=== PATIENT | male | born 1965 | race Caucasian/White ===

== ENCOUNTER 2021-06-11 12:29 | Emergency (ER) | payer MEDICAID, OTHER ==
[~2021-06-11] VITALS: Ht 172.7 cm; Wt 77.3 kg
[2021-06-11 12:47] VITALS: BP 146/98
[2021-06-11] MEDS ORDERED: ALBU8HFA PO (14:55)
[2021-06-11] MEDS ORDERED: BENZ-38 PO (14:55)
== END 2021-06-11 15:36 | disposition home or self-care (01) ==
LOC: ER 12:30
DX: J06.9 Acute upper respiratory infection, unspecified (principal); Z20.822 Contact with and (suspected) exposure to COVID-19; Z79.899 Other long term (current) drug therapy
CPT/HCPCS: 71045; 87635; 99284; C9803

== ENCOUNTER 2021-08-30 09:57 | Emergency (ER) | payer MEDICAID ==
[~2021-08-30] VITALS: Ht 172.7 cm; Wt 72.0 kg
[2021-08-30 10:17] VITALS: BP 120/73
--- NOTE | 2021-08-30 10:40 | NUR ---
1038 I have reviewed and agree with all interventions, assessments performed and documented by REGINALD TRAVIS.
== END 2021-08-30 13:53 | disposition home or self-care (01) ==
LOC: ER 09:58
DX: J02.9 Acute pharyngitis, unspecified (principal); Z20.822 Contact with and (suspected) exposure to COVID-19; R05.9 Cough, unspecified
CPT/HCPCS: 87635; 99283; C9803

== ENCOUNTER 2021-09-02 08:20 | Emergency (ER) | payer MEDICAID ==
[~2021-09-02] VITALS: Ht 172.7 cm; Wt 72.7 kg
[2021-09-02 08:29] VITALS: BP 127/71
[2021-09-02] MEDS ORDERED: PRED20TA PO (09:32)
[2021-09-02] MEDS ORDERED: AMOX-117 PO (09:32)
[2021-09-02] MEDS ORDERED: ALBU6.7H9 INH (09:32)
== END 2021-09-02 10:07 | disposition home or self-care (01) ==
LOC: ER 08:20
DX: J02.9 Acute pharyngitis, unspecified (principal); R05.9 Cough, unspecified; F17.200 Nicotine dependence, unspecified, uncomplicated; Z79.2 Long term (current) use of antibiotics; Z79.899 Other long term (current) drug therapy
CPT/HCPCS: 71045; 99283

== ENCOUNTER 2021-11-14 06:37 | Emergency (ER) | payer MEDICAID ==
[~2021-11-14] VITALS: Ht 172.7 cm; Wt 70.5 kg
[~2021-11-14 06:37] MED LIST: ALBU6.7H9 INH
[2021-11-14 06:40] VITALS: BP 147/86
[2021-11-14] MEDS ORDERED: LIDOcaine 1% 30ml preserv. free vial SQ STA (07:07)
[2021-11-14] MEDS ORDERED: MELO-102 PO (07:30)
== END 2021-11-14 08:10 | disposition home or self-care (01) ==
LOC: ER 06:38
DX: S29.011A Strain of muscle and tendon of front wall of thorax, initial encounter (principal); X50.0XXA Overexertion from strenuous movement or load, initial encounter; Y93.89 Activity, other specified; Y92.89 Other specified places as the place of occurrence of the external cause; Y99.8 Other external cause status
CPT/HCPCS: 20553; 99284

== ENCOUNTER 2022-03-24 11:36 | Emergency (ER) | payer MEDICAID ==
[~2022-03-24] VITALS: Ht 172.7 cm; Wt 86.4 kg
[~2022-03-24 11:36] MED LIST changes: +ALBU6.7H14 INH; -ALBU6.7H9 INH; +MELO-102 PO
[2022-03-24 11:53] VITALS: BP 126/81
[2022-03-24 12:35] LABS: BASOPHILS # (AUTO) 0.1 X10'3 (0-0.2); BASOPHILS % (AUTO) 0.6 % (0-1); EOSINOPHILS # (AUTO) 0.2 X10'3 (0-0.9); EOSINOPHILS % (AUTO) 1.6 % (0-6); HEMATOCRIT 42.2 % (42.0-52.0); HEMOGLOBIN 14.5 g/dl (14.0-17.9); LYMPHOCYTES # (AUTO) 3.2 X10'3 (1.1-4.8); LYMPHOCYTES % (AUTO) 31.5 % (21-51); MEAN CORPUSCULAR HGB CONC 34.2 g/dL (33.0-36.5); MEAN CORPUSCULAR VOLUME 93.6 FL (78-98); MEAN PLATELET VOLUME 7.9 FL (7.4-10.4); MONOCYTES # (AUTO) 0.9 X10'3 (0-0.9); MONOCYTES % (AUTO) 8.8 % (2-12); NEUTROPHILS # (AUTO) 5.9 X10'3 (1.8-7.7); NEUTROPHILS % (AUTO) 57.5 % (42-75); PLATELET COUNT 298 X10'3 (140-440); RED BLOOD COUNT 4.51 X10'6 (4.70-6.10); RED CELL DISTRIBUTION WIDTH 13.1 % (11.5-14.5); WHITE BLOOD COUNT 10.3 X10'3 (4.5-11.0)
[2022-03-24 12:40] LABS: CLARITY,URINE SLIGHTLY CLOUDY (Clear); COLOR,URINE YELLOW (Yellow); GLUCOSE, URINE NEGATIVE (Neg); KETONES,URINE NEGATIVE (Neg); LEUKOCYTE ESTERASE ,URINE TRACE (Neg); NITRITES, URINE NEGATIVE (Neg); OCCULT BLOOD,URINE TRACE-INTACT (Neg); PH,URINE 6.5 (4.8-8.0); PROTEIN,URINE NEGATIVE (Neg); UROBILINOGEN,URINE 0.2 E.U/dL (0.2-1.0)
[2022-03-24 12:42] LABS: UA COLLECTION TYPE CLN CATCH MIDSTREAM
[2022-03-24 12:46] LABS: MUCUS STRANDS FEW /LPF (Neg); SQUAMOUS EPITHELIAL CELL,UR FEW /LPF (FEW)
[2022-03-24 12:47] LABS: ALANINE AMINOTRANSFERASE 21 U/L (12-78); ALBUMIN 3.7 G/DL (3.4-5.0); ALBUMIN/GLOBULIN RATIO 0.9 (1.1-1.5); ALKALINE PHOSPHATASE 83 IU/L (46-116); ANION GAP 7 (8-16); ASPARTATE AMINO TRANSFERASE 13 U/L (10-37); BILIRUBIN,TOTAL 0.3 MG/DL (0.1-1.0); BLOOD UREA NITROGEN 15 MG/DL (7-18); CALCIUM 8.9 MG/DL (8.5-10.1); CHLORIDE 101 MMOL/L (99-107); CREATININE 0.94 MG/DL (0.60-1.10); GLUCOSE 93 MG/DL (70-104); LIPASE 81 U/L (73-393); POTASSIUM 4.2 MMOL/L (3.5-5.1); SODIUM 138 MMOL/L (135-145); TOTAL CARBON DIOXIDE 29.8 MMOL/L (24-32); TOTAL PROTEIN 7.8 G/DL (6.4-8.2); eGFR 82 ML/MIN
[2022-03-24 12:49] LABS: BACTERIA,URINE FEW /HPF (Neg); RBC,URINE 0-2 /HPF (0-2)
[2022-03-24] MEDS ORDERED: CIPR-259 PO (14:28)
[2022-03-24] MEDS ORDERED: FAMO20TA44 PO (14:28)
[2022-03-24] MEDS ORDERED: cephalexin 250mg capsule PO ONE (14:36)
[2022-03-24] MEDS ORDERED: famotidine 20mg tablet PO ONE (14:37)
== END 2022-03-24 14:46 | disposition home or self-care (01) ==
LOC: ER 11:37
DX: N39.0 Urinary tract infection, site not specified (principal)
CPT/HCPCS: 36415; 80053; 81001; 83690; 85025; 87077; 87088; 87186; 99283

== ENCOUNTER 2022-03-27 15:39 | Emergency (ER) | payer MEDICAID ==
[~2022-03-27] VITALS: Ht 172.7 cm; Wt 178.0 kg
[~2022-03-27 15:39] MED LIST changes: +CIPR-259 PO; +FAMO20TA44 PO
[2022-03-27 16:43] VITALS: BP 146/98
[2022-03-28] MEDS ORDERED: MAG355OR18 PO (12:17)
== END 2022-03-27 21:59 | disposition left against medical advice (07) ==
LOC: ER 15:40
DX: R11.0 Nausea (principal); Z53.21 Procedure and treatment not carried out due to patient leaving prior to being seen by health care provider

== ENCOUNTER 2022-03-28 08:33 | Emergency (ER) | payer MEDICAID ==
[~2022-03-28] VITALS: Ht 172.7 cm; Wt 81.8 kg
[2022-03-28 09:14] LABS: BASOPHILS # (AUTO) 0.1 X10'3 (0-0.2); BASOPHILS % (AUTO) 1.1 % (0-1); EOSINOPHILS # (AUTO) 0.1 X10'3 (0-0.9); HEMATOCRIT 43.6 % (42.0-52.0); HEMOGLOBIN 15.1 g/dl (14.0-17.9); LYMPHOCYTES # (AUTO) 2.4 X10'3 (1.1-4.8); MEAN CORPUSCULAR HEMOGLOBIN 32.1 PG (27.0-31.0); MEAN CORPUSCULAR HGB CONC 34.6 g/dL (33.0-36.5); MEAN CORPUSCULAR VOLUME 92.7 FL (78-98); MEAN PLATELET VOLUME 7.5 FL (7.4-10.4); MONOCYTES # (AUTO) 0.8 X10'3 (0-0.9); NEUTROPHILS # (AUTO) 6.2 X10'3 (1.8-7.7); NEUTROPHILS % (AUTO) 64.9 % (42-75); PLATELET COUNT 292 X10'3 (140-440); RED CELL DISTRIBUTION WIDTH 12.9 % (11.5-14.5); WHITE BLOOD COUNT 9.6 X10'3 (4.5-11.0)
[2022-03-28 09:41] LABS: ALBUMIN 4.1 G/DL (3.4-5.0); ASPARTATE AMINO TRANSFERASE 19 U/L (10-37)
[2022-03-28 09:43] LABS: ALANINE AMINOTRANSFERASE 21 U/L (12-78); ALKALINE PHOSPHATASE 81 IU/L (46-116); ANION GAP 6 (8-16); BILIRUBIN,TOTAL 0.9 MG/DL (0.1-1.0); BLOOD UREA NITROGEN 12 MG/DL (7-18); BUN/CREATININE RATIO 13.3 (5.4-32.0); CHLORIDE 101 MMOL/L (99-107); GLUCOSE 92 MG/DL (70-104); LIPASE 67 U/L (73-393); POTASSIUM 4.1 MMOL/L (3.5-5.1); SODIUM 136 MMOL/L (135-145); TOTAL CARBON DIOXIDE 29.3 MMOL/L (24-32); TOTAL PROTEIN 8.1 G/DL (6.4-8.2); eGFR 86 ML/MIN
[2022-03-28 10:45] LABS: CLARITY,URINE CLEAR (Clear); GLUCOSE, URINE NEGATIVE (Neg); KETONES,URINE 15 mg/dl (Neg); LEUKOCYTE ESTERASE ,URINE NEGATIVE (Neg); NITRITES, URINE NEGATIVE (Neg); OCCULT BLOOD,URINE TRACE-LYSED (Neg); PROTEIN,URINE NEGATIVE (Neg); UROBILINOGEN,URINE 0.2 E.U/dL (0.2-1.0)
[2022-03-28 10:48] LABS: COLOR,URINE STRAW (Yellow); UA COLLECTION TYPE VOIDED
[2022-03-28 10:56] LABS: BACTERIA,URINE FEW /HPF (Neg); MUCUS STRANDS FEW /LPF (Neg); RBC,URINE 0-2 /HPF (0-2); SQUAMOUS EPITHELIAL CELL,UR FEW /LPF (FEW); WBC,URINE 0-4 /HPF (0-4)
[2022-03-28 11:59] VITALS: BP 106/76
[2022-03-28] MEDS ORDERED: MAG355OR18 PO (12:17)
== END 2022-03-28 12:36 | disposition home or self-care (01) ==
LOC: ER 08:33
DX: R10.9 Unspecified abdominal pain (principal); Z79.899 Other long term (current) drug therapy; Z79.2 Long term (current) use of antibiotics
CPT/HCPCS: 36415; 80053; 81001; 83690; 85025; 99283

== ENCOUNTER 2022-03-30 11:48 | Emergency (ER) | payer MEDICAID ==
[~2022-03-30] VITALS: Ht 172.7 cm; Wt 79.5 kg
[~2022-03-30 11:48] MED LIST changes: +MAG355OR18 PO
[2022-03-30 12:45] VITALS: BP 134/77
== END 2022-03-30 15:43 | disposition home or self-care (01) ==
LOC: ER 11:49
DX: R10.9 Unspecified abdominal pain (principal); R11.0 Nausea; K21.9 Gastro-esophageal reflux disease without esophagitis; Z79.899 Other long term (current) drug therapy
CPT/HCPCS: 99281

== ENCOUNTER 2023-04-08 10:37 | Emergency (ER) | payer MEDICAID ==
[~2023-04-08] VITALS: Ht 172.7 cm; Wt 80.0 kg
[~2023-04-08 10:37] MED LIST changes: +AZIT-164 PO; -CIPR-259 PO; -MAG355OR18 PO; +OMEP40CA21 PO
[2023-04-08 10:39] VITALS: BP 130/88; PULSE 76; RESP 16; TEMP 97.1; O2SAT 99
--- NOTE | 2023-04-08 11:50 | NUR ---
PT VAGUE ON MEDICAL HISTORY
== END 2023-04-08 14:40 | disposition left against medical advice (07) ==
LOC: ER 10:37
DX: R09.81 Nasal congestion (principal); Z53.21 Procedure and treatment not carried out due to patient leaving prior to being seen by health care provider
CPT/HCPCS: 99281

== ENCOUNTER 2023-06-23 09:36 | Emergency (ER) | payer MEDICAID ==
[~2023-06-23] VITALS: Ht 172.7 cm; Wt 84.5 kg
[~2023-06-23 09:36] MED LIST changes: -AZIT-164 PO; -OMEP40CA21 PO
[2023-06-23 09:55] VITALS: BP 149/93; PULSE 79; RESP 17; TEMP 97.9; O2SAT 98
[2023-06-23] MEDS ORDERED: AZIT-21 PO ×3 (10:56→11:07)
[2023-06-23] MEDS ORDERED: ROBDML PO (10:56)
[2023-06-23] MEDS ORDERED: BENZ-38 PO ×3 (10:56→11:07)
== END 2023-06-23 11:10 | disposition home or self-care (01) ==
LOC: ER 09:36
DX: R05.9 Cough, unspecified (principal); R09.81 Nasal congestion; K21.9 Gastro-esophageal reflux disease without esophagitis; Z79.899 Other long term (current) drug therapy
CPT/HCPCS: 99283

== ENCOUNTER 2023-11-25 14:07 | Emergency (ER) | payer MEDICAID ==
[~2023-11-25] VITALS: Ht 170.2 cm; Wt 88.0 kg
[~2023-11-25 14:07] MED LIST changes: +AZIT-21 PO; +BENZ-38 PO
[2023-11-25 14:13] VITALS: TEMP 97.2; O2SAT 95
[2023-11-25 14:49] VITALS: BP 107/82; PULSE 89; RESP 16
== END 2023-11-25 15:40 | disposition home or self-care (01) ==
LOC: ER 14:08
DX: R05.9 Cough, unspecified (principal); K21.9 Gastro-esophageal reflux disease without esophagitis
CPT/HCPCS: 71045; 99283

== ENCOUNTER 2023-12-31 14:29 | Emergency (ER) | payer MEDICAID ==
[~2023-12-31] VITALS: Ht 170.2 cm; Wt 88.6 kg
[2023-12-31 15:10] VITALS: TEMP 97.9
[2023-12-31] MEDS ORDERED: DICY20TA17 PO (16:05)
[2023-12-31] MEDS ORDERED: METH-798 PO (16:05)
[2023-12-31 16:08] VITALS: BP 129/112; PULSE 83; RESP 16; O2SAT 100
== END 2023-12-31 16:10 | disposition home or self-care (01) ==
LOC: ER 14:30
DX: R10.84 Generalized abdominal pain (principal); K21.9 Gastro-esophageal reflux disease without esophagitis; Z79.899 Other long term (current) drug therapy; Z79.2 Long term (current) use of antibiotics
CPT/HCPCS: 99283

== ENCOUNTER 2024-03-17 13:30 | Emergency (ER) | payer MEDICAID ==
[~2024-03-17] VITALS: Ht 167.6 cm; Wt 90.0 kg
[~2024-03-17 13:30] MED LIST changes: +DICY20TA17 PO; +METH-798 PO
[2024-03-17] MEDS ORDERED: MUPI22OI30 TOP (15:38)
[2024-03-17 15:43] VITALS: BP 126/76; PULSE 71; RESP 16; TEMP 98; O2SAT 97
== END 2024-03-17 15:45 | disposition home or self-care (01) ==
LOC: ER 13:30
DX: S60.460A Insect bite (nonvenomous) of right index finger, initial encounter (principal); K21.9 Gastro-esophageal reflux disease without esophagitis; Z79.899 Other long term (current) drug therapy; Z79.2 Long term (current) use of antibiotics; W57.XXXA Bitten or stung by nonvenomous insect and other nonvenomous arthropods, initial encounter; Y93.89 Activity, other specified; Y92.89 Other specified places as the place of occurrence of the external cause; Y99.8 Other external cause status
CPT/HCPCS: 99283

== ENCOUNTER 2024-08-07 16:48 | Emergency (ER) | payer MEDICAID ==
[~2024-08-07] VITALS: Ht 170.2 cm; Wt 88.1 kg
[2024-08-07 16:53] VITALS: BP 164/89; PULSE 115; RESP 16; TEMP 98.2; O2SAT 98
[2024-08-07 17:35] LABS: STREP A SCREEN NEGATIVE (Neg)
== END 2024-08-07 18:02 | disposition home or self-care (01) ==
LOC: ER 16:49
DX: J39.2 Other diseases of pharynx (principal); J02.9 Acute pharyngitis, unspecified; K21.9 Gastro-esophageal reflux disease without esophagitis; Z79.899 Other long term (current) drug therapy
CPT/HCPCS: 87081; 87880; 99284

== ENCOUNTER 2024-12-31 11:03 | Emergency (ER) | payer MEDICAID ==
[~2024-12-31] VITALS: Ht 170.2 cm; Wt 68.2 kg
[2024-12-31 11:05] VITALS: BP 129/74; PULSE 96; RESP 16; TEMP 98.5; O2SAT 99
[2024-12-31] MEDS ORDERED: CLIN60LO TOP (11:25)
[2024-12-31] MEDS ORDERED: SULF1TAB49 PO (11:25)
--- NOTE | 2024-12-31 11:26 | Physician Documentation ---
History of Present Illness ~ Chief Complaint: Arm Pain Stated Complaint: ABSCESS Time Seen by MD: 11:12 Primary Medical Doctor: EDMOND RUTLEDGE HPI 59 year old Male with chronic abscess formations under his under arms. Has noticed for the past couple of days red abscesses to the left axillary region. No fevers no drainage from areas. Tetanus within 5 years: No Medication Reconciliation Allergies: Coded Allergies: No Known Allergies (Unverified , 12/31/24) Scheduled Albuterol Sulfate (Proventil Hfa), 2 PUFFS INH Q6H Azithromycin (Azithromycin), 1 TAB PO UD Benzonatate* (Benzonatate*), 1 CAP PO Q8H Clindamycin Phosphate (Cleocin T), 1 APPLIC TOP DAILY Dicyclomine HCl (Dicyclomine HCl), 1 TAB PO Q6H Famotidine (Pepcid AC), 1 TAB PO DAILY Meloxicam (Meloxicam), 1 TAB PO DAILY Methocarbamol (Methocarbamol), 1 TAB PO Q8H Sulfamethoxazole/Trimethoprim (Bactrim Ds Tablet), 1 TAB PO Q12H Past Medical History Past Medical History: *GI/HEPATOBILIARY*, GERD Past Surgical History: no surgical history Alcohol Use: None Drug Use: none Lives In: Home Review of Systems All Other Systems at this time: Reviewed and Negative Integumentary: Reports: see HPI Physical Exam Vital Signs: RN Vital Signs have been reviewed: Yes, Temperature: 98.5, Source: Temporal, Heart Rate: 96, Respiratory Rate: 16, BP: 129/74, Pulse Oximetry: 99, Weight: 68.180 Oxygen Flow Rate: 0 General Appearance: alert, WD/WN, no apparent distress Respiratory: lungs clear, normal breath sounds, no respiratory distress Chest: no accessory muscle use, chest non-tender Cardiovascular: normal peripheral pulses, regular rate, rhythm, no edema Skin The small indurated abscesses to the right axillary region no drainage ten derness Progress Results/Orders Results/Orders Vital Signs 12/31/24 11:05 Temp 98.5 Pulse 96 Resp 16 B/P (MAP) 129/74 Pulse Ox 99 O2 Flow Rate 0 Medical Decision Making Findings HS has a chronic abscess forming condition. An antibiotic cream and pill prescribed. Patient was instructed on abscess care and management including warm compress. Departure Time of Disposition: 11:21 Disposition: 01 HOME / SELF CARE / HOMELESS Impression: Primary Impression: Hidradenitis suppurativa of left axilla Condition: Stable Discharge Instructions: Abscess, Care After Additional Instructions: This appears to be Hidradenitis suppurativa. Antibiotics have been prescribed them follow up with primary care for further treatment and evaluation Referrals: NO PRIMARY CARE PROVIDER (PCP) Prescriptions Sulfamethoxazole/Trimethoprim (Bactrim Ds Tablet) 800 Mg-160 Mg Tablet 1 TAB PO Q12H for 10 Days, #20 TAB Prov: DENISHA PADILLA NP 12/31/24 Clindamycin Phosphate (Cleocin T) 1 % Lotion 1 APPLIC TOP DAILY for 30 Days, #60 ML 0 Refills apply to affected area(s) Prov: DENISHA PADILLA NP 12/31/24 Education Educated: Patient Educated regarding: diagnosis, treatment Signature Scribe Signature: No scribe Attestation: The note accurately reflects work and decisions made by me.Denisha MILAN 12/31/24 11:26 DENISHA PADILLA NP Dec 31, 2024 11:26
== END 2024-12-31 11:37 | disposition home or self-care (01) ==
LOC: ER 11:04
DX: L73.2 Hidradenitis suppurativa (principal)
CPT/HCPCS: 99283

== ENCOUNTER 2025-06-11 00:37 | Emergency (ER) | payer MEDICAID ==
[~2025-06-11] VITALS: Ht 170.2 cm; Wt 78.0 kg
[~2025-06-11 00:37] MED LIST changes: +CLIN60LO TOP
[2025-06-11 01:12] VITALS: BP 191/98; PULSE 77; RESP 15; O2SAT 98
[2025-06-11 02:35] VITALS: TEMP 97.6
--- NOTE | 2025-06-11 02:58 | Physician Documentation ---
History of Present Illness General Chief Complaint: Elbow pain Stated Complaint: ELBOW PAIN Time Seen by MD: 02:26 Primary Medical Doctor: EDMOND RUTLEDGE History of Present Illness Initial Comments This is a 60-year-old gentleman who reports no significant past medical history presents for evaluation of rash on the extensor surface of his left elbow that has been present there for couple of days without any obvious trigger, trauma provocation. No palliating or aggravating factors. The rash is scaly. He states that it pinches a little bit. No pain, no bleeding, no purulent discharge. Denies this ever happening in the past. Did not attempt to treat it. He came in today at 3:00 a.m. because he wanted to know exactly what it was. The denies any other injury other symptoms. Denies any concerns for tobacco, alcohol or illicit substances use Medication Reconciliation Allergies: Coded Allergies: No Known Allergies (Unverified , 06/11/25) Scheduled Albuterol Sulfate (Proventil Hfa), 2 PUFFS INH Q6H Azithromycin (Azithromycin), 1 TAB PO UD Benzonatate* (Benzonatate*), 1 CAP PO Q8H Clindamycin Phosphate (Cleocin T), 1 APPLIC TOP DAILY Dicyclomine HCl (Dicyclomine HCl), 1 TAB PO Q6H Famotidine (Pepcid AC), 1 TAB PO DAILY Meloxicam (Meloxicam), 1 TAB PO DAILY Methocarbamol (Methocarbamol), 1 TAB PO Q8H Past Medical History Past Medical History: *GI/HEPATOBILIARY*, GERD Past Surgical History: no surgical history Alcohol Use: None Drug Use: none Lives In: Home Review of Systems ROS 10 point review of systems was performed and unless noted above in HPI is negative for acute process/complaint. Physical Exam Physical Exam Vital Signs: Temperature: 97.6, Source: Temporal, Heart Rate: 77, Respiratory Rate: 15, BP: 191/98, Pulse Oximetry: 98, Weight: 78.000 Physical Exam Physical examination: GENERAL: Awake, alert, oriented, GCS 15, no apparent distress, non-toxic appearing, answers questions, follows commands appropriately. HEENT: Atraumatic, normocephalic, pupils equal, extraocular muscles intact Active gross movements, sclerae anicteric, mucus membranes moist, no stridor. NECK: Midline, no JVD CARDIOVASCULAR: Good skin perfusion without evidence of pallor, mottling. PULMONARY: Nonlabored, symmetric chest rise, no audible wheezing, no accessory muscle use, no respiratory distress, speaking in full sentences. GASTROINTESTINAL: Not distended. NEUROLOGIC: Lucid with normal mental status. Normal facial symmetry. Moves all extremities symmetrically and with purpose. No truncal ataxia. Speech is fluid without evidence of dysarthria or aphasia, no focal deficits appreciated. EXTREMITIES: Acute deformities Skin: warm, dry PSYCHIATRIC: Normal affect, normal insight, normal concentration. Focused exam: [There is a scaly rash to the extensor aspect of his left elbow consistent with a psoriasis, no active bleeding, no erythema, no calor, no purulent discharge, no fluctuance.] Progress Results/Orders Results/Orders Vital Signs 06/11/25 06/11/25 01:12 02:35 Temp 97.6 97.6 Pulse 77 Resp 15 B/P (MAP) 191/98 Pulse Ox 98 Medical Decision Making Additional information obtaine: N/A Findings Facility Status: ED Holds, [facility] process The plan was discussed with the patient, who demonstrates clear understanding of the plan and is in agreement with the plan unless otherwise noted in the chart. All questions have been answered, all concerns were addressed unless otherwise documented. I was available throughout their ED stay for frequent reassessment and questions. Differential Diagnoses (considered and possible or likely): [Most likely represents psoriasis, less likely eczema, no evidence of superimposed cellulitis, abscess] ??Differential Diagnoses (considered and unlikely, not requiring evaluation currently): [Clinically not consistent with a Sarath Lew's as there was no mucosal involvement] MDM Data Please see [facility] for the following: Independent Historians and external Records Review. Historian: [Patient] Independent Historians: ?[Record review] Medication Management: [Reviewed medication list] Social History and determinants: [Reviewed] Please see the body of the note for the following: Any independent interpretations of ECG, imaging studies. All vitals signs/haemodynamics, ordered tests were independently reviewed and interpreted by myself. Nursing triage complaint and vitals reviewed, additional nursing notes were reviewed as available and I agree unless otherwise noted or documented in contradiction in the chart Vital Signs: Independently reviewed Labs: Independently interpreted Imaging: Independently interpreted Old Medical Records: Independently reviewed, see [facility] for relevant summary and information Additionally notably showing: [Hemodynamically stable] Tests considered but not ordered include: [Hematologic workup and imaging has been considered but does not appear to be necessary given clinical nature of diagnosis] Social Determinants of Health Impact: Patient was evaluated in [facility], [facility] [place] to healthcare due to below par ratio of patient to medical providers. [] Comorbid Conditions Impacting Present Evaluation and Care/Treatment: [None reported by the patient] Management Discussions with other Healthcare Providers: [None] Treatment and Disposition Medication Management (Given or considered): []. See EMR for details Consideration for Hospitalization/Escalation/Deescalation of Care: Admission for observation has been considered, [however the patient is able to tolerate p.o., their symptoms are controlled, they are able to rely on oral medications, and their chief complaint/diagnosis can be managed on outpatient basis.] ?ED Course:?[No clinical deterioration] ?Shared decision making:?[Patient is hemodynamically stable for discharge home with follow with their primary care provider. [ ] Specific and cautious return precautions provided and discussed with full understanding. Any incidental findings were also discussed and follow up recommendations given. [] All questions answered. Patient/family were able to verbalize back return precautions. Patient/family agree to plan. Copies of imaging and laboratory studies were provided.] Code status:?FULL Please see the full Electronic Medical Record for full details of nursing documentation, medications list, other records of complete past medical history and conditions, vital signs, laboratory studies, and any radiologic study interpretations by radiologists. Portions of this note were completed using [employer] dictation software and as a result there may exist minor errors in spelling. I have reviewed elements of past family and social history and agree as included in note. Differential Diagnosis See body of the main note for differential diagnosis Departure Disposition: 01 HOME / SELF CARE / HOMELESS Impression: Primary Impression: Psoriasis Condition: Stable Discharge Instructions: Psoriasis Referrals: NO PRIMARY CARE PROVIDER (PCP) Education Educated: Patient Educated regarding: diagnosis, treatment, prognosis, need for follow up Signature Scribe Signature: No scribe Attestation: The note accurately reflects work and decisions made by me.Fermín Solis, 06/11/25 02:58 FERMÍN SOLIS DO Jun 11, 2025 02:58
[2025-06-11] MEDS: hydrocortisone 1% cream 28gm TP SCH (03:04)
== END 2025-06-11 03:05 | disposition home or self-care (01) ==
LOC: ER 00:37
DX: L40.9 Psoriasis, unspecified (principal); Z88.1 Allergy status to other antibiotic agents; Z88.8 Allergy status to other drugs, medicaments and biological substances
CPT/HCPCS: 99282